=== PATIENT | female | born 1940 | race Caucasian/White ===

== ENCOUNTER 2017-01-13 11:23 | Emergency (ER) | payer MEDICARE, OTHER ==
[2017-01-13] MEDS ORDERED: ACETAMINOPHEN 325 MG TABLET PO ONE (11:53)
--- NOTE | 2017-01-13 11:58 | ERNOTE ---
Upper Extremity HPI - General Extremities Pain Location: collar-bone area: right, shoulder: right Time Seen by Provider: 01/13/17 11:42 Source: patient - Immun/Allergies/Home Medications Immunizations: IMMUNIZATION HX Immunizations Up to Date Yes History of Influenza Vaccine No Hx Pneumococcal Vaccination No Allergies/Adverse Reactions: Allergies Allergy/AdvReac Type Severity Reaction Status Date / Time No Known Allergies Allergy Verified 01/13/17 11:38 Home Medications: HOME MEDICATIONS metroNIDAZOLE [Flagyl] 500 mg PO Q12H #14 tab 03/13/16 [Last Taken Unknown] - History of Present Illness Narrative: About four days ago patient couldn't sleep and used two pillows instead of one. The next days she started to have right shoulder pain radiating down her arm involving all of her hand. She saw her chiropractor without significant relieve. Today the pain is mainly in her right shoulder but is also involving her right clavicle. Date (Duration): 01/09/17 Occurred: other Modifying Factors - (Improves): Reports: pain medication, rest Modifying Factors - (Worsens): Reports: movement Associated Symptoms: Denies: tingling, weakness, numbness distally Other Injuries: Reports: none Prior Treament: Denies: recently seen, similar symptoms before Review of Systems - Review of Systems Constitutional: Absent: recent illness EYE: Absent: vision changes ENT: Absent: nose congestion, sore throat Respiratory: Absent: shortness of breath Cardiology: Present: See HPI. Absent: palpitations Gastrointestinal/Abdominal: Absent: nausea, vomiting, abdominal pain Genitourinary: Present: no symptoms reported Musculoskeletal: Present: See HPI. Absent: back pain, neck pain Skin: Absent: rash Neurological: Absent: headache, weakness, numbness - Patient's Past Medical History Patient History - Medical: Anemia, Diabetes Type 2, GERD Patient History - Cardiac/Respiratory: Atrial Fibrillation Patient History - Cancer: No Hx of Cancer Patient History - Surgical Procedures: Appendectomy, Colonoscopy, EGD, Hysterectomy, T & A, Other, Orthopedic Patient History - Other: None LMP (females 10-50): Menopausal - Social History Living Situations: home Abuse History: No History of abuse Psych History: No pertinent hx Smoking Status: Never smoker Alcohol Use: none Drug Use: none - Immunizations Immunizations Up to Date: Yes Hx Pneumococcal Vaccination: No History of Influenza Vaccine: No Physical Exam - Physical Exam General Appearance: Present: wd/wn, alert, no apparent distress Head Exam: Present: normal inspection Neck: Present: normal inspection, nontender, supple Respiratory: Present: no respiratory distress, normal breath sounds, no accessory muscle use, lungs clear Cardiovascular/Chest: Present: regular rate, rhythm, no murmur Back Exam: Present: normal inspection Extremity Exam: Present: normal except - - left shoulder tender ot palpation anteriorly, no pain on passive but on active ROM, tender over medial end of clavicle, no gross deformity Neurological Exam: Present: alert, oriented, normal mood/affect, no motor/ sensory deficits Skin Exam: Present: normal color, warm/dry ED Progress - Results and Orders Patient's Lab Results:: I have reviewed the patient's lab results. - Vital Signs Patient's Vital Signs:: I have reviewed the patient's vital signs. Vital Signs: Vital Signs 01/13/17 01/13/17 11:25 11:38 Temperature 36.9 C 36.9 C Pulse Rate 85 85 Respiratory 16 16 Rate Blood Pressure 137/72 137/72 O2 Sat by Pulse 94 94 Oximetry - EKG EKG: NSR, changed from - afib in prior, other - poor R progression, no acute changes EKG read: Interp. by me - X-Ray X-Ray #1 X-Ray: chest - small scar, no acute Interpretation: Reviewed by me X-Ray #2 X-Ray: clavicle - arthritis Interpretation: Reviewed by me X-Ray #3 X-Ray: shoulder - arthritis Interpretation: Reviewed by me - Progress/Reassessment Chief Complaint: Shoulder Injury/Pain Progress Note-Subjective: 01/13/17 12:43 discussed test results pain slightly better after tylenol Departure Clinical Impression: Shoulder pain, right Qualifiers: Chronicity: acute Qualified Code(s): M25.511 - Pain in right shoulder - Departure Disposition: Home self-care Condition: Good Instructions: Shoulder Pain, [id number] Additional Instructions: the pain in your shoulder is either from arthritis or a rotator cuff injury take the tylenol as needed for pain if the symptoms do not improve over the next week call your orthopedic doctor for follow up Referrals: Stephanie Strauss, [employer] [Primary Care Provider] -
[2017-01-13 12:00] LABS: Hematocrit 38.4 % (37.0-47.0); Hemoglobin 12.9 gm/dL (12.5-16.0); Mean Cell Volume 87.7 fl (78-100); Mean Corpuscular Hemoglobin 29.5 pg (27-31); Mean Corpuscular Hgb Conc 33.6 g/dl (32-36); Mean Platelet Volume 9.9 fl (6.0-9.5); Neutrophil # 10.8 K/mm3 (1.3-6.0); Neutrophil % 79.4 % (42-75.0); Platelet Count 278 K/mm3 (150-450); Red Blood Count 4.38 M/mm3 (4.2-5.4); Red Cell Distribution Width 13.6 % (11.5-14.0); White Blood Count 13.7 K/mm3 (4.0-10.5)
[2017-01-13] MEDS ORDERED: ACETAMINOPHEN 325 MG TABLET ONE (12:03)
[2017-01-13 12:14] LABS: ALT 10 U/L (19-67); AST 12 U/L (0-48); Albumin * 3.2 gm/dl (3.4-5.0); Alkaline Phosphatase * 80 U/L (50-170); Anion Gap 11.5 mmol/L (6.8-13.8); Bilirubin, Total 0.4 mg/dL (0.0-1.1); Blood Urea Nitrogen 16 mg/dL (3-23); Ca. Corrected For Albumin 9.6 mg/dL (8.4-10.2); Calcium * 9.3 mg/dL (7.9-10.9); Carbon Dioxide 30.2 mmol/L (24-32.6); Chloride 100 mmol/L (97-106); Glucose * 196 mg/dL (70-110); Potassium 3.7 mmol/L (3.4-4.6); Sodium 138 mmol/L (132-142); Total Protein 7.2 gm/dL (6.2-8.2); Troponin I Less than 0.017 ng/ml (0.00-0.10)
[2017-01-13 12:29] VITALS: BP 131/70
== END 2017-01-13 12:45 | disposition home or self-care (01) ==
LOC: ER 11:23
DX: M25.511 Pain in right shoulder (principal)

== ENCOUNTER 2017-01-23 11:47 | Emergency (ER) | payer MEDICARE, OTHER ==
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
[2017-01-23 12:11] LABS: Hematocrit 37.9 % (37.0-47.0); Hemoglobin 12.9 gm/dL (12.5-16.0); Mean Cell Volume 87.3 fl (78-100); Mean Corpuscular Hemoglobin 29.7 pg (27-31); Mean Platelet Volume 9.4 fl (6.0-9.5); Neutrophil # 17.9 K/mm3 (1.3-6.0); Platelet Count 383 K/mm3 (150-450); Red Blood Count 4.34 M/mm3 (4.2-5.4); Red Cell Distribution Width 13.6 % (11.5-14.0); White Blood Count 20.5 K/mm3 (4.0-10.5)
[2017-01-23 12:22] LABS: Prothrombin Time (Patient) 36.4 Seconds (9.4-11.4)
[2017-01-23 12:24] LABS: INR 3.5 INR (0.90-1.10); Partial Thrombolplastin Time 46.9 Seconds (24-32)
[2017-01-23] MEDS ORDERED: PHYTONADIONE (VIT K1) 10 MG/ML AMPUL IV ONE (12:28)
[2017-01-23 12:30] LABS: Albumin * 3.4 gm/dl (3.4-5.0); Anion Gap 17.4 mmol/L (6.8-13.8); BUN/Creatinine Ratio 23.5 (9.0-21.6); Bilirubin, Total 0.3 mg/dL (0.0-1.1); Ca. Corrected For Albumin 9.6 mg/dL (8.4-10.2); Calcium * 9.4 mg/dL (7.9-10.9); Carbon Dioxide 24.4 mmol/L (24-32.6); Potassium 3.8 mmol/L (3.4-4.6); Total Protein 6.6 gm/dL (6.2-8.2)
[2017-01-23] MEDS ORDERED: PHYTONADIONE (VIT K1) 10 MG/ML AMPUL ONE (12:31)
[2017-01-23 13:33] VITALS: BP 149/73
== END 2017-01-23 13:10 | disposition short-term general hospital (02) ==
LOC: ER 11:47
DX: I61.9 Nontraumatic intracerebral hemorrhage, unspecified (principal)
CPT/HCPCS: 36415; 70450; 71010; 80053; 85025; 85610; 85652; 85730; 93005; 96374; 99285; P9060